=== PATIENT | male | born 1985 | race Caucasian/White ===

== ENCOUNTER 2017-01-14 20:14 | Emergency (ER) | payer OTHER ==
[2017-01-14 20:24] VITALS: RESP 18
[2017-01-14 22:37] VITALS: BP 114/72; PULSE 86; TEMP 96.6; O2SAT 96
== END 2017-01-14 21:29 | disposition home or self-care (01) | DRG 605 ==
LOC: ED 20:14
DX: S61.012A Laceration without foreign body of left thumb without damage to nail, initial encounter (principal); W26.0XXA Contact with knife, initial encounter
CPT/HCPCS: 99283

== ENCOUNTER 2018-01-08 20:47 | Emergency (ER) | payer OTHER ==
[2018-01-08 20:59] VITALS: TEMP 99.9
[2018-01-08] MEDS ORDERED: KETOROLAC TROMETHAMINE 30 MG/ML SOL IM ONE (21:06)
[2018-01-08] MEDS ORDERED: CODEINE/GUAIFENESIN 5 ML ML PO ONE (21:06)
[2018-01-08] MEDS ORDERED: CODEINE/GUAIFENESIN 5 ML ML ONE (21:08)
[2018-01-08] MEDS ORDERED: KETOROLAC TROMETHAMINE 30 MG/ML SOL ONE (21:09)
[2018-01-08] MEDS ORDERED: OSELTAMIVIR PHOSPHATE 75 MG CAP PO ONE ×2 (21:32→21:34)
[2018-01-08 21:43] VITALS: BP 129/80; PULSE 85; RESP 20; O2SAT 99
== END 2018-01-08 21:50 | disposition home or self-care (01) | DRG 195 ==
LOC: ED 20:47
DX: J10.1 Influenza due to other identified influenza virus with other respiratory manifestations (principal); R07.9 Chest pain, unspecified
CPT/HCPCS: 87804; 99283; J1885; A9270-GY